=== PATIENT | female | born 1970 | race Caucasian/White ===

== ENCOUNTER 2022-12-26 12:16 | Emergency (ER) | payer OTHER, SELFPAY ==
--- NOTE | 2022-12-26 12:18 | ED.GENADULT ---
HPI - General Adult General Chief complaint: Abdominal Pain Stated complaint: Upset Stomach Time Seen by Provider: 12/26/22 12:27 Source: patient, RN notes reviewed and old records reviewed Mode of arrival: ambulatory Limitations: no limitations History of Present Illness HPI narrative: 52-year-old female presents to the [facility] of a gnawing gut for several weeks. Patient states this started a couple of weeks ago with with burning in her throat and a gnawing sensation in her abdomen. Has taken Pepcid a couple of times and states that and make the burning better. Patient wants to make sure that she does not have anything ?wrong? in her abdomen. States that she cool gold her symptoms and she is concerned for a ulcer. Patient states that she can sleep with the pain especially when it wraps around into her back. Denies any chest pain or shortness of breath. Denies any new urinary symptoms. Last bowel movement yesterday which she reports is normal Onset (ago): week(s) Related Data Home Medications Medication Instructions Recorded Confirmed aspirin 81 mg tablet,delayed 81 mg PO DAILY 12/26/22 12/26/22 release clopidogrel 75 mg tablet 75 mg PO DAILY 12/26/22 12/26/22 Allergies Allergy/AdvReac Type Severity Reaction Status Date / Time pantoprazole [From Protonix] AdvReac Intermediate Dyspnea / Verified 12/26/22 12:34 SOB Sulfa (Sulfonamide AdvReac Intermediate Dyspnea / Verified 12/26/22 12:34 Antibiotics) SOB sulfamethoxazole AdvReac Intermediate Dyspnea / Verified 12/26/22 12:33 [From Bactrim] SOB trimethoprim [From Bactrim] AdvReac Intermediate Dyspnea / Verified 12/26/22 12:33 SOB Penicillins AdvReac Mild Hives Verified 12/26/22 12:33 Review of Systems Review of Systems: All systems reviewed & are unremarkable except as noted in HPI and below Constitutional: Constitutional: Reports no additional constitutional complaints Eyes: Eyes: Reports no additional eye complaints ENT: Reports system reviewed and no additional complaints, except as documented Cardiovascular: Cardiovascular: Reports no additional cardiovascular complaints, Denies chest pain and Denies dyspnea Respiratory: Respiratory: Reports no additional respiratory complaints, Denies chest congestion, Denies cough and Denies dyspnea Gastrointestinal: Gastrointestinal: Reports as per HPI, Reports abdominal pain, Denies nausea and Denies vomiting Musculoskeletal: Musculoskeletal: Reports no additional musculoskeletal complaints Integumentary/Breasts: Skin/Breast: Reports system reviewed and no additional complaints, except as docu Neurologic: Reports system reviewed and no additional complaints, except as documented Psychiatric: Psychiatric: Reports no additional psychiatric complaints Allergic/Immunologic: Allergic/Immunologic: Reports no additional allergic/immunologic complaints PMFSH Comments At the time of my signature, I reviewed and agree with the nursing past medical, surgical, social, and family history. There is no relevant family history pertinent to the patient complaint. Exam Const: General: cooperative, healthy appearing, comfortable, no acute distress, well developed, alert and well nourished Nutritional Appearance: well nourished Orientation/consciousness: patient oriented x3 Limitations: no limitations HENMT: Head: normal to inspection Ears: hearing grossly normal bilaterally and external ears normal Face/Nose/Sinus: Normal external nose present, Normal nares present, Normal nasal mucous membranes and turbinates present, normal facial exam and face symmetric Face and sinus: normal facial exam and face symmetric Eyes: General: appearance normal, both eyes and all related structures Alignment and Position: alignment normal Periorbital: periorbital findings normal Pupils: Equal, round and reactive pupils present EOM: EOMs intact bilaterally Neck: Neck: normal visual inspection, full ROM, no lymphadenopathy and
[2022-12-26 12:25] VITALS: BP 140/76; PULSE 69; RESP 16; TEMP 36.4; O2SAT 100
== END 2022-12-26 12:42 | disposition left against medical advice (07) ==
PROVIDERS: Emergency Provider Nurse Practitioner
DX: R10.10 Upper abdominal pain, unspecified (principal); Z79.82 Long term (current) use of aspirin
CPT/HCPCS: 99211; G0463